=== PATIENT | female | born 1965 | race American Indian/Alaskan Native ===

== ENCOUNTER 2017-12-23 10:30 | Emergency (ER) | payer BC ==
[2017-12-23 11:11] VITALS: BP 130/66
--- NOTE | 2017-12-23 12:16 | Emergency Department Report ---
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 states pain is chronic but has been worse for the past two days. no fever, no redness, no swelling. ED Past Medical Hx - Past Medical History Previous Medical History?: No Hx Hypertension: No Hx CVA: No - Surgical History Past Surgical History?: Yes Additional Surgical History: tubiligation - Social History Smoking Status: Current Some Day Smoker Substance Use Type: Alcohol - Medications Home Medications: Home Medications Medication Instructions Recorded Confirmed Last Taken Type Azithromycin [Zithromax Z-ANJELICA] 250 mg PO DAILY #6 tablet 07/25/14 Unknown Rx Promethazine /Codeine 5 ml PO Q6H PRN #120 udc 07/25/14 Unknown Rx [Phenergan/Codeine 6.25-10 mg/5 ml] predniSONE [Deltasone] 10 mg PO TID #15 tab 07/25/14 Unknown Rx methOCARBAMOL [Robaxin TAB] 500 mg PO Q6H PRN #20 tablet 12/23/17 Unknown Rx ED Review of Systems ROS: Stated complaint: RIGHT KNEE/LEFT FOOT PAIN Other details as noted in HPI Comment: All other systems reviewed and negative Gastrointestinal: denies: abdominal pain, nausea Genitourinary: denies: urgency, dysuria Musculoskeletal: arthralgia Physical Exam - Physical Exam Vital Signs: Vital Signs 12/23/17 11:08 Temperature 98.1 F Pulse Rate 60 Respiratory 18 Rate Blood Pressure 130/66 O2 Sat by Pulse 100 Oximetry Physical Exam: GENERAL APPEARANCE: Well developed, well nourished, alert and cooperative, and appears to be in no acute distress. HEAD: normocephalic. EYES: PERRL, EOMI. Fundi normal, vision is grossly intact. EARS: External auditory canals and tympanic membranes clear, hearing grossly intact. NOSE: No nasal discharge. THROAT: Oral cavity and pharynx normal. No inflammation, swelling, exudate, or lesions. Teeth and gingiva in good general condition. NECK: Neck supple, non-tender without lymphadenopathy, masses or thyromegaly. CARDIAC: Normal S1 and S2. No S3, S4 or murmurs. Rhythm is regular. There is no peripheral edema, cyanosis or pallor. Extremities are warm and well perfused. Capillary refill is less than 2 seconds. No carotid bruits. LUNGS: Clear to auscultation and percussion without rales, rhonchi, wheezing or diminished breath sounds. ABDOMEN: Positive bowel sounds. Soft, nondistended, nontender. No guarding or rebound. No masses. MUSKULOSKELETAL: Adequately aligned spine. ROM intact spine and extremities. No joint erythema. Normal muscular development. Normal gait. does have right knee crepitus, right foot tenderness. BACK: Examination of the spine reveals normal gait and posture, no spinal deformity, symmetry of spinal muscles, without tenderness, decreased range of motion or muscular spasm. EXTREMITIES: No significant deformity or joint abnormality. No edema. Peripheral pulses intact. No varicosities. LOWER EXTREMITY: Examination of both feet reveals all toes to be normal in size and symmetry, normal range of motion, normal sensation with distal capillary filling of less than 2 seconds without tenderness, swelling, discoloration, nodules, weakness or deformity; examination of both ankles, knees, legs, and hips reveals normal range of motion, normal sensation without tenderness, swelling, discoloration, crepitus, weakness or deformity. NEUROLOGICAL: CN II-XII intact. Strength and sensation symmetric and intact throughout. Reflexes 2+ throughout. Cerebellar testing normal. SKIN: Skin normal color, texture and turgor with no lesions or eruptions. PSYCHIATRIC: The mental examination revealed the patient was oriented to person , place, and time. The patient was able to demonstrate good judgement and reason , without hallucinations, abnormal affect or abnormal behaviors during the examination. Patient is not suicidal. ED Course Vital Signs 12/23/17 11:08 Temperature 98.1 F Pulse Rate 60 Respiratory 18 Rate Blood Pressure 130/66 O2 Sat by Pulse 100 Oximetry Critical care attestation.: If time is entered above; I have spent that time in minutes in the direct care of this critically ill patient, excluding procedure time. ED Disposition Clinical Impression: Foot pain, left DJD (degenerative joint disease) of knee Qualifiers: Osteoarthritis type: unspecified Laterality: right Qualified Code(s): M17.11 - Unilateral primary osteoarthritis, right knee Disposition: - TO HOME OR SELFCARE Is pt being admited?: No Does the pt Need Aspirin: No Condition: Stable Prescriptions: methOCARBAMOL [Robaxin TAB] 500 mg PO Q6H PRN #20 tablet PRN Reason: Pain Referrals: PRIMARY CARE, [Primary Care Provider] - 3-5 Days
== END 2017-12-23 12:29 | disposition home or self-care (01) ==
LOC: ED 10:30
DX: M17.11 Unilateral primary osteoarthritis, right knee (principal); M79.672 Pain in left foot; F17.200 Nicotine dependence, unspecified, uncomplicated; Z98.51 Tubal ligation status
CPT/HCPCS: 99282

== ENCOUNTER 2018-01-13 06:12 | Emergency (ER) | payer BC ==
[2018-01-13 06:18] VITALS: BP 137/77
--- NOTE | 2018-01-13 06:44 | XRay Report ---
FINAL REPORT EXAM: XR FOOT 2V LT HISTORY: foot pain TECHNIQUE: AP and lateral views of the left foot were submitted. FINDINGS: There is no evidence of fracture or dislocation. There are small spurs along the posterior and plantar margin of the calcaneus. The soft tissues are unremarkable. IMPRESSION: Calcaneal spurs. Otherwise unremarkable exam.
--- NOTE | 2018-01-13 09:08 | Emergency Department Report ---
ED Extremity Problem HPI - General Chief complaint: Extremity Injury, Lower Stated complaint: FOOT PAIN Time Seen by Provider: 01/13/18 08:46 Source: patient Mode of arrival: Ambulatory Limitations: No Limitations - History of Present Illness Initial comments: Patient is a 52-year-old female who is complaining of left foot pain. Patient states she stepped out of her work van yesterday and didn't think she may twisted her foot. Patient is having lateral pain to the left foot as well as pain at the arch. Patient states hurts when she's placing her foot on the ground and walking. Patient states at the worst is 8 out of 10 in severity. Sometimes she is having some shooting pains in this area. Patient denies any other injury issue at this time. - Related Data Previous Rx's Medication Instructions Recorded Last Taken Type Azithromycin [Zithromax Z-ANJELICA] 250 mg PO DAILY #6 tablet 07/25/14 Unknown Rx Promethazine /Codeine 5 ml PO Q6H PRN #120 udc 07/25/14 Unknown Rx [Phenergan/Codeine 6.25-10 mg/5 ml] predniSONE [Deltasone] 10 mg PO TID #15 tab 07/25/14 Unknown Rx methOCARBAMOL [Robaxin TAB] 500 mg PO Q6H PRN #20 tablet 12/23/17 Unknown Rx Ibuprofen [Motrin] 600 mg PO Q8H PRN #20 tablet 01/13/18 Unknown Rx traMADol [Ultram] 50 mg PO Q6HR PRN #12 tablet 01/13/18 Unknown Rx Allergies Allergy/AdvReac Type Severity Reaction Status Date / Time No Known Allergies Allergy Verified 01/13/18 06:20 ED Review of Systems ROS: Stated complaint: FOOT PAIN Other details as noted in HPI Comment: All other systems reviewed and negative ED Past Medical Hx - Past Medical History Hx Hypertension: No Hx CVA: No - Surgical History Additional Surgical History: tubiligation - Social History Smoking Status: Current Some Day Smoker Substance Use Type: None - Medications Home Medications: Home Medications Medication Instructions Recorded Confirmed Last Taken Type Azithromycin [Zithromax Z-ANJELICA] 250 mg PO DAILY #6 tablet 07/25/14 Unknown Rx Promethazine /Codeine 5 ml PO Q6H PRN #120 udc 07/25/14 Unknown Rx [Phenergan/Codeine 6.25-10 mg/5 ml] predniSONE [Deltasone] 10 mg PO TID #15 tab 07/25/14 Unknown Rx methOCARBAMOL [Robaxin TAB] 500 mg PO Q6H PRN #20 tablet 12/23/17 Unknown Rx Ibuprofen [Motrin] 600 mg PO Q8H PRN #20 tablet 01/13/18 Unknown Rx traMADol [Ultram] 50 mg PO Q6HR PRN #12 tablet 01/13/18 Unknown Rx ED Physical Exam - General Limitations: No Limitations General appearance: alert, in no apparent distress - Head Head exam: Present: atraumatic, normocephalic - Eye Eye exam: Present: normal appearance - ENT ENT exam: Present: mucous membranes moist - Neck Neck exam: Present: normal inspection - Respiratory Respiratory exam: Present: normal lung sounds bilaterally. Absent: respiratory distress, rales, rhonchi - Cardiovascular Cardiovascular Exam: Present: regular rate, normal rhythm. Absent: systolic murmur, diastolic murmur, rubs, gallop - GI/Abdominal GI/Abdominal exam: Present: soft, normal bowel sounds. Absent: distended, tenderness, guarding - Extremities Exam Extremities exam: Present: normal inspection, other (patient has some very mild tenderness to the lateral left foot. There is no erythema or swelling in this area.) - Back Exam Back exam: Present: normal inspection - Neurological Exam Neurological exam: Present: alert, oriented X3 - Psychiatric Psychiatric exam: Present: normal affect, normal mood - Skin Skin exam: Present: warm, dry, intact, normal color. Absent: rash ED Course Vital Signs 01/13/18 01/13/18 06:12 06:14 Temperature 98.8 F 98.8 F Pulse Rate 63 74 Respiratory 18 Rate Blood Pressure 137/77 137/77 O2 Sat by Pulse 98 98 Oximetry ED Medical Decision Making - Radiology Data Patient: JUVE DAVIS MR#: [id number] : 1965 Acct:[id number] Age/Sex: 52 / F ADM Date: 01/13/18 Loc: ED Attending Dr: Ordering Physician: BRIAN BRAR MD Date of Service: 01/13/18 Procedure(s): XR foot 2V LT Accession Number(s): [id number] cc: ED MD ZONIA Fluoro Time In Minutes: FINAL REPORT EXAM: XR FOOT 2V LT HISTORY: foot pain TECHNIQUE: AP and lateral views of the left foot were submitted. FINDINGS: There is no evidence of fracture or dislocation. There are small spurs along the posterior and plantar margin of the calcaneus. The soft tissues are unremarkable. IMPRESSION: Calcaneal spurs. Otherwise unremarkable exam. - Medical Decision Making Patient will be referred to podiatry O be discharged home. Critical care attestation.: If time is entered above; I have spent that time in minutes in the direct care of this critically ill patient, excluding procedure time. ED Disposition Clinical Impression: Plantar fasciitis of left foot Calcaneal spur Qualifiers: Laterality: left Qualified Code(s): M77.32 - Calcaneal spur, left foot Disposition: TO HOME OR SELFCARE Is pt being admited?: No Does the pt Need Aspirin: No Condition: Stable Instructions: Plantar Fasciitis (ED) Referrals: MARY BRAND DPM [Staff Physician] - 3-5 Days Time of Disposition: 09:08
== END 2018-01-13 09:14 | disposition home or self-care (01) ==
LOC: ED 06:12
DX: M72.2 Plantar fascial fibromatosis (principal); M77.32 Calcaneal spur, left foot; F17.200 Nicotine dependence, unspecified, uncomplicated; Z98.51 Tubal ligation status
CPT/HCPCS: 99283

== ENCOUNTER 2019-04-26 11:07 | Emergency (ER) | payer BC ==
[2019-04-26 11:25] VITALS: BP 152/94
--- NOTE | 2019-04-26 11:48 | Emergency Department Report ---
ED ENT HPI - General Chief complaint: Dental/Oral Stated complaint: LFT SIDE TOOTHACHE Time Seen by Provider: 04/26/19 11:44 Source: patient Mode of arrival: Ambulatory Limitations: No Limitations - History of Present Illness Initial comments: This is a 53-year-old female nontoxic, well nourished in appearance, no acute signs of distress presents to the ED with c/o of left upper toothache 3 weeks. Patient denies following up with a dentist. Patient describes toothache as aching level of 8 out of 10. Patient denies any facial swelling. Patient de nies any numbness, tingling, fever, chills, headache, stiff neck, abdominal pain, chest pain, shortness of breath. Patient denies any drug allergies or significant past medical history. MD complaint: tooth pain -: week(s) (3) Location: tooth # 1 - pain Severity: mild Severity scale (0 -10): 8 Quality: aching Consistency: constant Improves with: none Worsens with: none Context- Dental: history of dental caries, poor dental care Associated Symptoms: gum swelling, toothache. denies: fever, cough, pain with swallowing, sore throat, tinnitus, hearing loss, discharge from ear, rhinorrhea - Related Data Previous Rx's Medication Instructions Recorded Last Taken Type Azithromycin [Zithromax Z-ANJELICA] 250 mg PO DAILY #6 tablet 07/25/14 Unknown Rx Promethazine /Codeine 5 ml PO Q6H PRN #120 udc 07/25/14 Unknown Rx [Phenergan/Codeine 6.25-10 mg/5 ml] predniSONE [Deltasone] 10 mg PO TID #15 tab 07/25/14 Unknown Rx methOCARBAMOL [Robaxin TAB] 500 mg PO Q6H PRN #20 tablet 12/23/17 Unknown Rx Ibuprofen [Motrin] 600 mg PO Q8H PRN #20 tablet 01/13/18 Unknown Rx traMADol [Ultram] 50 mg PO Q6HR PRN #12 tablet 01/13/18 Unknown Rx Acetaminophen/Codeine [Tylenol 1 tab PO Q6H PRN #12 tab 09/02/19 Unknown Rx /Codeine # 3 tab] Amoxicillin [Amoxicillin TAB] 875 mg PO BID #20 tablet 04/26/19 Unknown Rx Nystas/Diphen/Xyl Visc/Mylanta 30 ml MM Q6H PRN 5 Days ml 04/26/19 Unknown Rx [Magic Mouthwash] Allergies Allergy/AdvReac Type Severity Reaction Status Date / Time No Known Allergies Allergy Verified 01/13/18 06:20 ED Dental HPI - General Chief complaint: Dental/Oral Stated complaint: LFT SIDE TOOTHACHE Time Seen by Provider: 04/26/19 11:44 Source: patient Mode of arrival: Ambulatory Limitations: No Limitations - Related Data Previous Rx's Medication Instructions Recorded Last Taken Type Azithromycin [Zithromax Z-ANJELICA] 250 mg PO DAILY #6 tablet 07/25/14 Unknown Rx Promethazine /Codeine 5 ml PO Q6H PRN #120 udc 07/25/14 Unknown Rx [Phenergan/Codeine 6.25-10 mg/5 ml] predniSONE [Deltasone] 10 mg PO TID #15 tab 07/25/14 Unknown Rx methOCARBAMOL [Robaxin TAB] 500 mg PO Q6H PRN #20 tablet 12/23/17 Unknown Rx Ibuprofen [Motrin] 600 mg PO Q8H PRN #20 tablet 01/13/18 Unknown Rx traMADol [Ultram] 50 mg PO Q6HR PRN #12 tablet 01/13/18 Unknown Rx Acetaminophen/Codeine [Tylenol 1 tab PO Q6H PRN #12 tab 04/26/19 Unknown Rx /Codeine # 3 tab] Amoxicillin [Amoxicillin TAB] 875 mg PO BID #20 tablet 04/26/19 Unknown Rx Nystas/Diphen/Xyl Visc/Mylanta 30 ml MM Q6H PRN 5 Days ml 04/26/19 Unknown Rx [Magic Mouthwash] Allergies Allergy/AdvReac Type Severity Reaction Status Date / Time No Known Allergies Allergy Verified 01/13/18 06:20 ED Review of Systems ROS: Stated complaint: LFT SIDE TOOTHACHE Other details as noted in HPI Constitutional: denies: chills, fever Eyes: denies: eye pain, eye discharge, vision change ENT: dental pain. denies: ear pain, throat pain Respiratory: denies: cough, shortness of breath, wheezing Cardiovascular: denies: chest pain, palpitations Endocrine: no symptoms reported Gastrointestinal: denies: abdominal pain, nausea, diarrhea Genitourinary: denies: urgency, dysuria, discharge Musculoskeletal: denies: back pain, joint swelling, arthralgia Skin: denies: rash, lesions Neurological: denies: headache, weakness, paresthesias Psychiatric: denies: anxiety, depression Hematological/Lymphatic: denies: easy bleeding, easy bruising ED Past Medical Hx - Past Medical History Previous Medical History?: Yes Hx Hypertension: No Hx CVA: No - Surgical History Past Surgical History?: Yes Additional Surgical History: tubiligation - Social History Smoking Status: Current Some Day Smoker Substance Use Type: None - Medications Home Medications: Home Medications Medication Instructions Recorded Confirmed Last Taken Type Azithromycin [Zithromax Z-ANJELICA] 250 mg PO DAILY #6 tablet 07/25/14 Unknown Rx Promethazine /Codeine 5 ml PO Q6H PRN #120 udc 07/25/14 Unknown Rx [Phenergan/Codeine 6.25-10 mg/5 ml] predniSONE [Deltasone] 10 mg PO TID #15 tab 07/25/14 Unknown Rx methOCARBAMOL [Robaxin TAB] 500 mg PO Q6H PRN #20 tablet 12/23/17 Unknown Rx Ibuprofen [Motrin] 600 mg PO Q8H PRN #20 tablet 01/13/18 Unknown Rx traMADol [Ultram] 50 mg PO Q6HR PRN #12 tablet 01/13/18 Unknown Rx Acetaminophen/Codeine [Tylenol 1 tab PO Q6H PRN #12 tab 04/26/19 Unknown Rx /Codeine # 3 tab] Amoxicillin [Amoxicillin TAB] 875 mg PO BID #20 tablet 04/26/19 Unknown Rx Nystas/Diphen/Xyl Visc/Mylanta 30 ml MM Q6H PRN 5 Days ml 04/26/19 Unknown Rx [Magic Mouthwash] ED Physical Exam - General Limitations: No Limitations General appearance: alert, in no apparent distress - Head Head exam: Present: atraumatic, normocephalic - Expanded ENT Exam Expanded Ear exam: Present: normal external inspection Mouth exam: Present: normal external inspection. Absent: drooling, trismus, muffled voice Teeth exam: Present: dental caries, fractured tooth #, dental tenderness #, gingival enlargement, other (facial swelling) Throat exam: Positive: normal inspection, other (uvula midline). Negative: tonsillar erythema, tonsillomegaly, tonsillar exudate, R peritonsillar mass, L peritonsillar mass - Neck Neck exam: Present: normal inspection, full ROM. Absent: tenderness, mening ismus, lymphadenopathy - Extremities Exam Extremities exam: Present: normal inspection, full ROM - Back Exam Back exam: Present: normal inspection, full ROM - Neurological Exam Neurological exam: Present: alert, oriented X3, normal gait - Psychiatric Psychiatric exam: Present: normal affect, normal mood - Skin Skin exam: Present: warm, dry, intact, normal color. Absent: rash ED Course Vital Signs 04/26/19 11:22 Temperature 98.1 F Pulse Rate 63 Respiratory 18 Rate Blood Pressure 152/94 O2 Sat by Pulse 98 Oximetry - Reevaluation(s) Reevaluation #1: 04/26/19 11:48 Patient is speaking in full sentences with no signs of distress noted. Critical care attestation.: If time is entered above; I have spent that time in minutes in the direct care of this critically ill patient, excluding procedure time. ED Disposition Clinical Impression: Dental caries, Gingivitis Disposition: DC-01 TO HOME OR SELFCARE Is pt being admited?: No Does the pt Need Aspirin: No Condition: Stable Instructions: Acetaminophen/Codeine (By mouth), Dental Caries (ED), Gingivitis (ED) Additional Instructions: Follow-up with a dentist doctor in 3-5 days or if symptoms worsen and continue return to emergency room as soon as possible. Do not operate any machinery while taking Tylenol with codeine as this may cause drowsiness. Prescriptions: Amoxicillin [Amoxicillin TAB] 875 mg PO BID #20 tablet Nystas/Diphen/Xyl Visc/Mylanta [Magic Mouthwash] 30 ml MM Q6H PRN 5 Days ml PRN Reason: Sore Throat Acetaminophen/Codeine [Tylenol /Codeine # 3 tab] 1 tab PO Q6H PRN #12 tab PRN Reason: pain Referrals: PRIMARY CARE, [Primary Care Provider] - 3-5 Days JACKI EATON MD [Staff Physician] - 3-5 Days [facility] [Outside] - 3-5 Days [facility] [Outside] - 3-5 Days Forms: Work/School Release Form(ED)
== END 2019-04-26 12:15 | disposition home or self-care (01) ==
LOC: ED 11:07
DX: K02.9 Dental caries, unspecified (principal); K05.10 Chronic gingivitis, plaque induced; F17.200 Nicotine dependence, unspecified, uncomplicated; Z98.51 Tubal ligation status; Z79.899 Other long term (current) drug therapy

== ENCOUNTER 2020-12-13 00:20 | Emergency (ER) | payer BC ==
[2020-12-13 01:15] VITALS: BP 151/83
[2020-12-13] MEDS ORDERED: ACETAMINOPHEN 500 MG TAB PO ONE (01:44)
[2020-12-13] MEDS ORDERED: ONDANSETRON 4 MG ODT TAB PO ONE (01:44)
[2020-12-13] MEDS ORDERED: IBUPROFEN 600 MG TAB PO ONE (01:45)
[2020-12-13 02:18] LABS: Basophils # (Auto) 0.1 K/mm3 (0.0-0.1); Basophils % (Auto) 1.1 % (0.0-1.8); Eosinophils # (Auto) 0.1 K/mm3 (0.0-0.4); Eosinophils % (Auto) 1.9 % (0.0-4.3); Hematocrit 35.3 % (30.3-42.9); Hemoglobin 11.4 gm/dl (10.1-14.3); Lymphocytes # (Auto) 2.6 K/mm3 (1.2-5.4); Lymphocytes % (Auto) 40.8 % (13.4-35.0); Mean Corpuscular HGB Conc 32 % (30-34); Mean Corpuscular Volume 80 fl (79-97); Monocytes # (Auto) 0.5 K/mm3 (0.0-0.8); Monocytes % (Auto) 8.6 % (0.0-7.3); Platelet Count 299 K/mm3 (140-440); Red Blood Count 4.39 M/mm3 (3.65-5.03)
[2020-12-13 02:36] LABS: Albumin 4.1 g/dL (3.9-5); Calcium 9.6 mg/dL (8.4-10.2)
--- NOTE | 2020-12-13 03:08 | Cat Scan Report ---
CT ABDOMEN AND PELVIS WITHOUT CONTRAST HISTORY: Pt complains of RIGHT sided flank pain, otherwise asymptomatic.. COMPARISON: None. TECHNIQUE: CT images of the abdomen and pelvis were obtained without administration of intravenous co ntrast. All CT scans at this location are performed using CT dose reduction for ALARA by means of au tomated exposure control. FINDINGS: Lungs/bones: Lung bases are clear. There are degenerative changes in the spine and pelvis with no ac nikolski osseous abnormality identified. Abdomen/pelvis: There is cholelithiasis with no gallbladder wall thickening or pericholecystic fluid . The liver is enlarged with no focal mass identified. The spleen, pancreas, adrenals, kidneys, and p roximal GI tract appear unremarkable. Urinary bladder is unremarkable. There is uterine fibroid disease with some calcified fibroids. No pe lvic free fluid or acute colonic abnormality. The appendix and terminal ileum are normal. IMPRESSION: 1. Cholelithiasis without evidence of cholecystitis. 2. Uterine fibroid disease. 3. Otherwise nothing acute. Appendix is normal. Signer Name: Willie Dietz MD Signed: 12/13/2020 3:04 AM Workstation Name: [id number]
[2020-12-13 03:16] LABS: Bilirubin,Urine NEG (Negative); Blood,Urine NEG (Negative); Color,Urine Yellow (Yellow); Mucus,Urine FEW /HPF; Protein,Urine <15 mg/dL mg/dL (Negative); Urobilinogen,Urine < 2.0 mg/dL (<2.0)
--- NOTE | 2020-12-13 03:32 | Emergency Department Report ---
ED Abdominal Pain HPI - General Chief Complaint: Abdominal Pain Stated Complaint: RT SIDE/BACK PAIN Source: patient Mode of arrival: Ambulatory Limitations: No Limitations - History of Present Illness Initial Comments: Patient is a 55-year-old -[place] female with no past medical history presents to the ED with complaint of acute onset persistent severe right flank pain that radiates to the right upper quadrant area with nausea and urinary frequency and urgency for the last 12 hours. Patient states that the pain is worse with any movement or palpation. Patient denies heavy lifting, fall, traumatic injury, vomiting, chest pain, shortness of breath, headache, dizz iness, syncope, diarrhea, fever, chills, cough, numbness and tingling or weakness of lower extremities bilaterally. MD Complaint: abdominal pain (Right flank pain radiating to the right upper quadrant), flank pain (Right flank pain radiating to right upper quadrant), other (Nausea and urinary frequency) -: Sudden, hour(s) (12) Location: RUQ, R flank Radiation: RUQ, R flank Migration to: no migration Severity scale (0 -10): 6 Quality: aching, sharp Consistency: constant Improves With: nothing Worsens With: movement Associated Symptoms: denies other symptoms, nausea, anorexia. denies: vomiting, diarrhea, fever, chills, dysuria, hematemesis, hematochezia, melena, syncope - Related Data Previous Rx's Medication Instructions Recorded Last Taken Type Azithromycin [Zithromax Z-ANJELICA] 250 mg PO DAILY #6 tablet 07/25/14 Unknown Rx Promethazine /Codeine 5 ml PO Q6H PRN #120 udc 07/25/14 Unknown Rx [Phenergan/Codeine 6.25-10 mg/5 ml] predniSONE 10 mg PO TID #15 tab 07/25/14 Unknown Rx methOCARBAMOL [Robaxin TAB] 500 mg PO Q6H PRN #20 tablet 12/23/17 Unknown Rx Ibuprofen [Motrin] 600 mg PO Q8H PRN #20 tablet 01/13/18 Unknown Rx traMADoL [Ultram] 50 mg PO Q6HR PRN #12 tablet 01/13/18 Unknown Rx Acetaminophen/Codeine [Tylenol 1 tab PO Q6H PRN #12 tab 04/26/19 Unknown Rx /Codeine # 3 tab] Amoxicillin [Amoxicillin TAB] 875 mg PO BID #20 tablet 04/26/19 Unknown Rx Nystas/Diphen/Xyl Visc/Mylanta 30 ml MM Q6H PRN 5 Days ml 04/26/19 Unknown Rx [Magic Mouthwash] Famotidine [Pepcid] 20 mg PO BID #60 tablet 12/13/20 Unknown Rx Ibuprofen [Motrin] 800 mg PO Q8HR PRN #30 tablet 12/13/20 Unknown Rx Ondansetron [Zofran Odt] 4 mg PO Q6HR PRN #15 tab.rapdis 12/13/20 Unknown Rx Allergies Allergy/AdvReac Type Severity Reaction Status Date / Time No Known Allergies Allergy Verified 01/13/18 06:20 ED Review of Systems ROS: Stated complaint: RT SIDE/BACK PAIN Other details as noted in HPI Constitutional: denies: chills, fever Eyes: denies: eye pain, eye discharge, vision change ENT: denies: ear pain, throat pain Respiratory: denies: cough, shortness of breath, wheezing Cardiovascular: denies: chest pain, palpitations Endocrine: no symptoms reported Gastrointestinal: abdominal pain (Right upper quadrant pain, right flank pain), nausea. denies: diarrhea Genitourinary: denies: urgency, dysuria, discharge Musculoskeletal: denies: back pain, joint swelling, arthralgia Skin: denies: rash, lesions Neurological: denies: headache, weakness, paresthesias Psychiatric: denies: anxiety, depression Hematological/Lymphatic: denies: easy bleeding, easy bruising ED Past Medical Hx - Past Medical History Previous Medical History?: No Hx Hypertension: No Hx CVA: No - Surgical History Past Surgical History?: Yes Additional Surgical History: tubiligation - Social History Smoking Status: Current Some Day Smoker Substance Use Type: None - Medications Home Medications: Home Medications Medication Instructions Recorded Confirmed Last Taken Type Azithromycin [Zithromax Z-ANJELICA] 250 mg PO DAILY #6 tablet 07/25/14 Unknown Rx Promethazine /Codeine 5 ml PO Q6H PRN #120 udc 07/25/14 Unknown Rx [Phenergan/Codeine 6.25-10 mg/5 ml] predniSONE 10 mg PO TID #15 tab 07/25/14 Unknown Rx methOCARBAMOL [Robaxin TAB] 500 mg PO Q6H PRN #20 tablet 05/01/18 Unknown Rx Ibuprofen [Motrin] 600 mg PO Q8H PRN #20 tablet 01/13/18 Unknown Rx traMADoL [Ultram] 50 mg PO Q6HR PRN #12 tablet 01/13/18 Unknown Rx Acetaminophen/Codeine [Tylenol 1 tab PO Q6H PRN #12 tab 04/26/19 Unknown Rx /Codeine # 3 tab] Amoxicillin [Amoxicillin TAB] 875 mg PO BID #20 tablet 04/26/19 Unknown Rx Nystas/Diphen/Xyl Visc/Mylanta 30 ml MM Q6H PRN 5 Days ml 04/26/19 Unknown Rx [Magic Mouthwash] Famotidine [Pepcid] 20 mg PO BID #60 tablet 12/13/20 Unknown Rx Ibuprofen [Motrin] 800 mg PO Q8HR PRN #30 tablet 12/13/20 Unknown Rx Ondansetron [Zofran Odt] 4 mg PO Q6HR PRN #15 tab.rapdis 12/13/20 Unknown Rx ED Physical Exam - General Limitations: No Limitations General appearance: alert, in no apparent distress - Head Head exam: Present: atraumatic, normocephalic, normal inspection - Eye Eye exam: Present: normal appearance, PERRL, EOMI Pupils: Present: normal accommodation - ENT ENT exam: Present: normal exam, normal orophraynx, mucous membranes moist, TM's normal bilaterally, normal external ear exam - Neck Neck exam: Present: normal inspection, full ROM - Respiratory Respiratory exam: Present: normal lung sounds bilaterally. Absent: respiratory distress, wheezes, rales, chest wall tenderness, accessory muscle use - Cardiovascular Cardiovascular Exam: Present: regular rate, normal rhythm, normal heart sounds. Absent: systolic murmur, diastolic murmur, rubs, gallop - GI/Abdominal GI/Abdominal exam: Present: soft, tenderness (Palpable right flank and right upper quadrant tenderness; negative Staples sign), normal bowel sounds. Absent: guarding, rebound, hyperactive bowel sounds, hypoactive bowel sounds - Extremities Exam Extremities exam: Present: normal inspection, full ROM, normal capillary refill - Back Exam Back exam: Present: normal inspection, full ROM, tenderness (Palpable right CVA tenderness; palpable right flank and right lateral lumbosacral paraspinal musculoskeletal tenderness), CVA tenderness (R), muscle spasm, paraspinal tenderness. Absent: CVA tenderness (L), vertebral tenderness - Neurological Exam Neurological exam: Present: alert, oriented X3, CN II-XII intact, normal gait, reflexes normal - Psychiatric Psychiatric exam: Present: normal affect, normal mood - Skin Skin exam: Present: warm, dry, intact, normal color. Absent: rash ED Course Vital Signs 12/13/20 01:12 Temperature 97.9 F Pulse Rate 69 Respiratory 18 Rate Blood Pressure 151/83 O2 Sat by Pulse 99 Oximetry ED Medical Decision Making - Lab Data Result diagrams: 12/13/20 01:47 12/13/20 01:47 - Radiology Data Radiology results: report reviewed, image reviewed [facility] [address] [place] [address] Cat Scan Report Signed Patient: JUVE DAVIS MR#: [id number] : 1965 Acct:[id number] Age/Sex: 55 / F ADM Date: 12/13/20 Loc: ED Attending Dr: Ordering Physician: TU URBANO Date of Service: 12/13/20 Procedure(s): CT abdomen pelvis wo con Accession Number(s): [id number] cc: TU URBANO CT ABDOMEN AND PELVIS WITHOUT CONTRAST HISTORY: Pt complains of RIGHT sided flank pain, otherwise asymptomatic.. COMPARISON: None. TECHNIQUE: CT images of the abdomen and pelvis were obtained without administration of intravenous contrast. All CT scans at this location are performed using CT dose reduction for ALARA by means of automated exposure control. FINDINGS: Lungs/bones: Lung bases are clear. There are degenerative changes in the spine and pelvis with no acute osseous abnormality identified. Abdomen/pelvis: There is cholelithiasis with no gallbladder wall thickening or pericholecystic fluid. The liver is enlarged with no focal mass identified. The spleen, pancreas, adrenals, kidneys, and proximal GI tract appear unremarkable. Urinary bladder is unremarkable. There is uterine fibroid disease with some norma cified fibroids. No pelvic free fluid or acute colonic abnormality. The appendix and terminal ileum are normal. IMPRESSION: 1. Cholelithiasis without evidence of cholecystitis. 2. Uterine fibroid disease. 3. Otherwise nothing acute. Appendix is normal. Signer Name: Willie Dietz MD Signed: 12/13/2020 3:04 AM Workstation Name: [id number] Transcribed By: SHERLEY Dictated By: Willie Dietz MD Electronically Authenticated By: Willie Dietz MD Signed Date/Time: 12/13/20303 DD/ 1 TD/TT: Print Cancel - Medical Decision Making This is a 55-year-old -[place] female with no past medical history pr esents to the ED with complaint of acute onset persistent severe right flank pain that radiates to the right upper quadrant area with nausea and urinary frequency and urgency for the last 12 hours. Patient states that the pain is worse with any movement or palpation. In the ED, patient is alert and oriented x3 and is not in any distress. Lab test results were reviewed and are all nonactionable. Abdomen pelvis CT scan without contrast showed a normal appendix, and also showed uterine fibroid disease and cholelithiasis without evidence of cholecystitis. Patient was treated for pain in the ED and also given antiemetics. On reevaluation, patient's pain is well controlled medications. Patient will discharge home on pain medications and given referral to the general surgeon on-call Dr. Man for follow-up regarding cholelithiasis. Patient was advised to contact Dr. Man's office first thing in the morning today December 13, 2020 to schedule a follow-up appointment. Patient is advised return to the ED immediately if symptoms get worse. - Differential Diagnosis Kidney stones; Cholelithiasis; UTI; GERD; Appendicitis; fibroroids Critical care attestation.: If time is entered above; I have spent that time in minutes in the direct care of this critically ill patient, excluding procedure time. ED Disposition Clinical Impression: Acute abdominal pain in right flank, Acute abdominal pain in right upper quadrant, Cholelithiasis without cholecystitis Uterine fibroid Qualifiers: Uterine leiomyoma location: unspecified location Qualified Code(s): D25.9 - Leiomyoma of uterus, unspecified Disposition: DC-01 TO HOME OR SELFCARE Is pt being admited?: No Does the pt Need Aspirin: No Condition: Stable Instructions: Abdominal Pain (ED), Cholelithiasis, [id number], Uterine Fibroids, [id number], Abdominal Pain, Adult, [id number], Flank Pain, Adult, [id number]-[id number] Additional Instructions: All lab test results were reviewed and are all nonactionable. Abdomen pelvis CT scan without contrast showed cholelithiasis without evidence of cholecystitis. It also showed a normal appendix and uterine fibroids. Therefore take medications with food, drink plenty of fluids and follow-up with the general surgeon on-call Dr. Man for further evaluation. Contact Dr. Man's office first thing today in the morning December 13, 2020 to schedule a follow-up appoint ment. Return to the ED immediately if symptoms get worse. Prescriptions: Ibuprofen [Motrin] 800 mg PO Q8HR PRN #30 tablet PRN Reason: Pain , Severe (7-10) Famotidine [Pepcid] 20 mg PO BID #60 tablet Ondansetron [Zofran Odt] 4 mg PO Q6HR PRN #15 tab.rapdis PRN Reason: Nausea Referrals: KALIE MAN DO [Staff Physician] - [facility] Time of Disposition: 03:36 Print Language: GREENLANDIC
== END 2020-12-13 03:46 | disposition home or self-care (01) ==
LOC: ED 00:20
DX: D25.9 Leiomyoma of uterus, unspecified (principal); K80.20 Calculus of gallbladder without cholecystitis without obstruction; R10.11 Right upper quadrant pain; F17.200 Nicotine dependence, unspecified, uncomplicated; Z79.899 Other long term (current) drug therapy; Z98.51 Tubal ligation status
CPT/HCPCS: 36415; 74176; 80053; 81001; 83690; 85025; 87086; Q0162

== ENCOUNTER 2022-01-09 09:31 | Emergency (ER) | payer BC ==
[2022-01-09] MEDS ORDERED: CYCLOBENZAPRINE 10 MG TAB PO ONE (12:46)
[2022-01-09] MEDS ORDERED: predniSONE 20 MG TAB PO ONE (12:46)
[2022-01-09] MEDS ORDERED: KETOROLAC 10 MG TAB PO ONE (12:46)
--- NOTE | 2022-01-09 13:07 | Emergency Department Report ---
ED Extremity Problem HPI - General Chief complaint: Extremity Problem,Nontraumatic Stated complaint: PAIN BOTH KNEES/NUMBNESS Time Seen by Provider: 01/09/22 12:41 Source: patient Mode of arrival: Ambulatory Limitations: No Limitations - History of Present Illness Initial comments: 56-year-old black female with no past medical history presents to the emergency department for evaluation of right knee pain. She states that her right knee pain started on Friday and she denies any trauma or injury. She states that several years ago she fell and hit her knee and had some pain back then but that pain had resolved. She states that her right knee pain now is rated 9 out of 10, intermittent, and worse with certain positions. She denies fever or sw elling to her right knee. MD Complaint: extremity pain -: Gradual, week(s) (1) Location: right, knee History of Same: No -: No myalgia, No arthralgia, No associated dyspnea, No associated chest pain Severity scale (0 -10): 9 Quality: aching Consistency: intermittent Worsens with: other (Certain positions) Associated Symptoms: denies: chest pain, shortness of breath, fever, myalgias, arthralgias, rash - Related Data Previous Rx's Medication Instructions Recorded Last Taken Type Azithromycin [Zithromax Z-ANJELICA] 250 mg PO DAILY #6 tablet 07/25/14 Unknown Rx Promethazine /Codeine 5 ml PO Q6H PRN #120 udc 07/25/14 Unknown Rx [Phenergan/Codeine 6.25-10 mg/5 ml] predniSONE 10 mg PO TID #15 tab 07/25/14 Unknown Rx methOCARBAMOL [Robaxin TAB] 500 mg PO Q6H PRN #20 tablet 12/23/17 Unknown Rx Ibuprofen [Motrin] 600 mg PO Q8H PRN #20 tablet 01/13/18 Unknown Rx traMADoL [Ultram] 50 mg PO Q6HR PRN #12 tablet 01/13/18 Unknown Rx Acetaminophen/Codeine [Tylenol 1 tab PO Q6H PRN #12 tab 04/26/19 Unknown Rx /Codeine # 3 tab] Amoxicillin [Amoxicillin TAB] 875 mg PO BID #20 tablet 04/26/19 Unknown Rx Nystas/Diphen/Xyl Visc/Mylanta 30 ml MM Q6H PRN 5 Days ml 04/26/19 Unknown Rx [Magic Mouthwash] Famotidine [Pepcid] 20 mg PO BID #60 tablet 12/13/20 Unknown Rx Ibuprofen [Motrin] 800 mg PO Q8HR PRN #30 tablet 12/13/20 Unknown Rx Ondansetron [Zofran Odt] 4 mg PO Q6HR PRN #15 tab.rapdis 12/13/20 Unknown Rx Cyclobenzaprine [Flexeril] 10 mg PO TID PRN #30 tab 01/09/22 Unknown Rx Naproxen [Naprosyn] 500 mg PO BID #14 tab 01/09/22 Unknown Rx Allergies Allergy/AdvReac Type Severity Reaction Status Date / Time No Known Allergies Allergy Verified 01/13/18 06:20 ED Review of Systems ROS: Stated complaint: PAIN BOTH KNEES/NUMBNESS Other details as noted in HPI Comment: All other systems reviewed and negative Constitutional: denies: chills, fever Eyes: denies: vision change ENT: denies: congestion Respiratory: denies: cough, shortness of breath, SOB with exertion, SOB at rest, stridor, wheezing Cardiovascular: denies: chest pain, palpitations, dyspnea on exertion, orthopnea, edema, syncope, paroxysmal nocturnal dyspnea Gastrointestinal: denies: abdominal pain, nausea, vomiting, diarrhea, hematemesis, melena, hematochezia Musculoskeletal: denies: back pain Neurological: denies: headache ED Past Medical Hx - Past Medical History Hx Hypertension: No Hx CVA: No - Surgical History Additional Surgical History: tubiligation - Social History Smoking Status: Current Some Day Smoker Substance Use Type: None - Medications Home Medications: Home Medications Medication Instructions Recorded Confirmed Last Taken Type Azithromycin [Zithromax Z-ANJELICA] 250 mg PO DAILY #6 tablet 07/25/14 Unknown Rx Promethazine /Codeine 5 ml PO Q6H PRN #120 udc 07/25/14 Unknown Rx [Phenergan/Codeine 6.25-10 mg/5 ml] predniSONE 10 mg PO TID #15 tab 07/25/14 Unknown Rx methOCARBAMOL [Robaxin TAB] 500 mg PO Q6H PRN #20 tablet 12/23/17 Unknown Rx Ibuprofen [Motrin] 600 mg PO Q8H PRN #20 tablet 01/13/18 Unknown Rx traMADoL [Ultram] 50 mg PO Q6HR PRN #12 tablet 01/13/18 Unknown Rx Acetaminophen/Codeine [Tylenol 1 tab PO Q6H PRN #12 tab 04/26/19 Unknown Rx /Codeine # 3 tab] Amoxicillin [Amoxicillin TAB] 875 mg PO BID #20 tablet 04/26/19 Unknown Rx Nystas/Diphen/Xyl Visc/Mylanta 30 ml MM Q6H PRN 5 Days ml 04/26/19 Unknown Rx [Magic Mouthwash] Famotidine [Pepcid] 20 mg PO BID #60 tablet 12/13/20 Unknown Rx Ibuprofen [Motrin] 800 mg PO Q8HR PRN #30 tablet 12/13/20 Unknown Rx Ondansetron [Zofran Odt] 4 mg PO Q6HR PRN #15 tab.rapdis 12/13/20 Unknown Rx Cyclobenzaprine [Flexeril] 10 mg PO TID PRN #30 tab 01/09/22 Unknown Rx Naproxen [Naprosyn] 500 mg PO BID #14 tab 01/09/22 Unknown Rx ED Physical Exam - General Limitations: No Limitations General appearance: alert, in no apparent distress - Head Head exam: Present: atraumatic, normocephalic - Eye Eye exam: Present: normal appearance. Absent: scleral icterus, conjunctival injection - Neck Neck exam: Present: normal inspection - Respiratory Respiratory exam: Absent: respiratory distress - Cardiovascular Cardiovascular Exam: Present: bradycardia - GI/Abdominal GI/Abdominal exam: Absent: distended - Extremities Exam Extremities exam: Present: normal inspection - Expanded Lower Extremity Exam Right Hip exam: Present: normal inspection Upper Leg exam: Present: normal inspection Knee exam: Present: normal inspection, full ROM, tenderness. Absent: swelling, abrasion, laceration, ecchymosis, crepidus, dislocation, erythema, effusion Lower Leg exam: Present: normal inspection Ankle exam: Present: normal inspection Foot/Toe exam: Present: normal inspection Neuro vascular tendon exam: Present: no vascular compromise. Absent: pulse defi cit, abnormal cap refill, motor deficit, sensory deficit, extremity cold to touch, pallor Gait: Positive: observed and normal - Back Exam Back exam: Present: normal inspection. Absent: CVA tenderness (R), CVA tenderness (L) - Neurological Exam Neurological exam: Present: alert, oriented X3 - Psychiatric Psychiatric exam: Present: normal affect, normal mood - Skin Skin exam: Present: warm, dry, intact, normal color ED Course Vital Signs 01/09/22 01/09/22 09:43 13:49 Temperature 97.8 F 97.6 F Pulse Rate 59 L 73 Respiratory 18 20 Rate Blood Pressure 159/78 128/75 [Right] O2 Sat by Pulse 99 100 Oximetry ED Medical Decision Making - Medical Decision Making 56-year-old black female with no past medical history presents to the emergency department for evaluation of right knee pain. She states that her right knee pain started on Friday and she denies any trauma or injury. She states that several years ago she fell and hit her knee and had some pain back then but that pain had resolved. She states that her right knee pain now is rated 9 out of 10, intermittent, and worse with certain positions. She denies fever or swelling to her right knee. No gross abnormalities noted on exam. Patient treated with steroids, anti- inflammatories, and muscle relaxants in the emergency department. She will be discharged home with naproxen and Flexeril to use as needed for pain and advised to follow-up with her primary care provider or orthopedics as needed. She is advised to return to the emergency department for any concerning symptoms. She verbalizes understanding of and agreement with plan of care. Critical care attestation.: If time is entered above; I have spent that time in minutes in the direct care of this critically ill patient, excluding procedure time. ED Disposition Clinical Impression: Right knee pain Qualifiers: Chronicity: acute Qualified Code(s): M25.561 - Pain in right knee Disposition: 01 HOME / SELF CARE / HOMELESS Is pt being admited?: No Does the pt Need Aspirin: No Condition: Stable Instructions: Chronic Knee Pain, Adult, [id number], How to Use Cold Therapy, [id number]-[id number], Musculoskeletal Pain, Acute Knee Pain, Adult, [id number] Additional Instructions: Take medications as prescribed. Follow-up with primary care provider if no improvement or worsening symptoms. Return to the emergency department as needed. Prescriptions: Cyclobenzaprine [Flexeril] 10 mg PO TID PRN #30 tab PRN Reason: Muscle Spasm Naproxen [Naprosyn] 500 mg PO BID #14 tab Referrals: OWEN STRICKLAND MD [Primary Care Provider] - 3-5 Days YANG MAGANA MD [Staff Physician] - 3-5 Days Forms: Work/School Release Form(ED) Time of Disposition: 13:06
[2022-01-09 13:50] VITALS: BP 128/75
== END 2022-01-09 13:49 | disposition home or self-care (01) ==
LOC: ED 09:31
DX: M25.561 Pain in right knee (principal); F17.200 Nicotine dependence, unspecified, uncomplicated
CPT/HCPCS: 99282

== ENCOUNTER 2022-01-20 15:44 | Emergency (ER) | payer BC ==
[2022-01-20 16:16] VITALS: BP 149/85
[2022-01-20] MEDS ORDERED: IBUPROFEN 600 MG TAB PO ONE (23:03)
[2022-01-20] MEDS ORDERED: ACETAMINOPHEN 500 MG TAB PO ONE (23:03)
[2022-01-20] MEDS ORDERED: predniSONE 20 MG TAB PO ONE (23:03)
--- NOTE | 2022-01-20 23:12 | Emergency Department Report ---
ED Extremity Problem HPI - General Chief complaint: Pain General Stated complaint: RT KNEE PAIN Source: patient Mode of arrival: Ambulatory Limitations: No Limitations - History of Present Illness Initial comments: Patient is a 56-year-old -Polish female with a history of chronic osteoarthritis of the right knee who presents to the ED with complaint of acute exacerbation of her chronic right knee pain for the last 2 weeks, worse in the last 2 days. Patient states that any ambulation makes the pain worse and that she has previously taken [id number] pain medications with no relief. Patient denies headache, dizziness, fall, chest pain or shortness of breath, fever, chills, nausea and vomiting, numbness and tingling or weakness of lower extremities bilaterally or hip pain and change in vision. MD Complaint: extremity pain (Chronic right knee), extremity swelling (Right knee), joint swelling (Right knee), joint paint (Right knee) -: Gradual, year(s) (5) Location: right (knee), lower extremity (right knee) History of Same: Yes (Chronic osteoarthritis of the right knee) -: Yes arthralgia (Right knee), No fever, No associated dyspnea, No associated chest pain Radiation: none Severity scale (0 -10): 8 Quality: aching, sharp Consistency: constant Improves with: nothing Worsens with: weight bearing, walking, exertion, palpation Associated Symptoms: denies other symptoms, arthralgias (Right knee pain). denies: chest pain, shortness of breath, myalgias, rash - Related Data Previous Rx's Medication Instructions Recorded Last Taken Type Azithromycin [Zithromax Z-ANJELICA] 250 mg PO DAILY #6 tablet 07/25/14 Unknown Rx Promethazine /Codeine 5 ml PO Q6H PRN #120 udc 07/25/14 Unknown Rx [Phenergan/Codeine 6.25-10 mg/5 ml] predniSONE 10 mg PO TID #15 tab 07/25/14 Unknown Rx Ibuprofen [Motrin] 600 mg PO Q8H PRN #20 tablet 01/13/18 Unknown Rx Acetaminophen/Codeine [Tylenol 1 tab PO Q6H PRN #12 tab 04/26/19 Unknown Rx /Codeine # 3 tab] Amoxicillin [Amoxicillin TAB] 875 mg PO BID #20 tablet 04/26/19 Unknown Rx Nystas/Diphen/Xyl Visc/Mylanta 30 ml MM Q6H PRN 5 Days ml 04/26/19 Unknown Rx [Magic Mouthwash] Famotidine [Pepcid] 20 mg PO BID #60 tablet 12/13/20 Unknown Rx Ondansetron [Zofran Odt] 4 mg PO Q6HR PRN #15 tab.rapdis 12/13/20 Unknown Rx Cyclobenzaprine [Flexeril] 10 mg PO TID PRN #30 tab 01/09/22 Unknown Rx Naproxen [Naprosyn] 500 mg PO BID #14 tab 01/09/22 Unknown Rx Ibuprofen [Motrin 800 MG tab] 800 mg PO Q8HR PRN #30 tablet 01/20/22 Unknown Rx methOCARBAMOL [Robaxin TAB] 500 mg PO Q6H PRN #30 tablet 01/20/22 Unknown Rx predniSONE [Deltasone] 60 mg PO QDAY #15 tab 01/20/22 Unknown Rx traMADoL [Ultram 50 MG tab] 50 mg PO Q6HR PRN #12 tablet 01/20/22 Unknown Rx Allergies Allergy/AdvReac Type Severity Reaction Status Date / Time No Known Allergies Allergy Verified 01/13/18 06:20 ED Review of Systems ROS: Stated complaint: RT KNEE PAIN Other details as noted in HPI Constitutional: denies: chills, fever Eyes: denies: eye pain, eye discharge, vision change ENT: denies: ear pain, throat pain Respiratory: denies: cough, shortness of breath, wheezing Cardiovascular: denies: chest pain, palpitations Endocrine: no symptoms reported Gastrointestinal: denies: abdominal pain, nausea, diarrhea Genitourinary: denies: urgency, dysuria, discharge Musculoskeletal: joint swelling (Right knee), arthralgia (Right knee pain and swelling). denies: back pain Skin: denies: rash, lesions Neurological: denies: headache, weakness, paresthesias Psychiatric: denies: anxiety, depression Hematological/Lymphatic: denies: easy bleeding, easy bruising ED Past Medical Hx - Past Medical History Hx Hypertension: No Hx CVA: No Hx Arthritis: Yes (Right knee chronic) Additional medical history: right knee pain - Surgical History Additional Surgical History: tubiligation - Social History Smoking Status: Light Tobacco Smoker Substance Use Type: None - Medications Home Medications: Home Medications Medication Instructions Recorded Confirmed Last Taken Type Azithromycin [Zithromax Z-ANJELICA] 250 mg PO DAILY #6 tablet 07/25/14 Unknown Rx Promethazine /Codeine 5 ml PO Q6H PRN #120 udc 07/25/14 Unknown Rx [Phenergan/Codeine 6.25-10 mg/5 ml] predniSONE 10 mg PO TID #15 tab 07/25/14 Unknown Rx Ibuprofen [Motrin] 600 mg PO Q8H PRN #20 tablet 01/13/18 Unknown Rx Acetaminophen/Codeine [Tylenol 1 tab PO Q6H PRN #12 tab 04/26/19 Unknown Rx /Codeine # 3 tab] Amoxicillin [Amoxicillin TAB] 875 mg PO BID #20 tablet 04/26/19 Unknown Rx Nystas/Diphen/Xyl Visc/Mylanta 30 ml MM Q6H PRN 5 Days ml 04/26/19 Unknown Rx [Magic Mouthwash] Famotidine [Pepcid] 20 mg PO BID #60 tablet 12/13/20 Unknown Rx Ondansetron [Zofran Odt] 4 mg PO Q6HR PRN #15 tab.rapdis 12/13/20 Unknown Rx Cyclobenzaprine [Flexeril] 10 mg PO TID PRN #30 tab 01/09/22 Unknown Rx Naproxen [Naprosyn] 500 mg PO BID #14 tab 01/09/22 Unknown Rx Ibuprofen [Motrin 800 MG tab] 800 mg PO Q8HR PRN #30 tablet 01/20/22 Unknown Rx methOCARBAMOL [Robaxin TAB] 500 mg PO Q6H PRN #30 tablet 01/20/22 Unknown Rx predniSONE [Deltasone] 60 mg PO QDAY #15 tab 01/20/22 Unknown Rx traMADoL [Ultram 50 MG tab] 50 mg PO Q6HR PRN #12 tablet 01/20/22 Unknown Rx ED Physical Exam - General Limitations: No Limitations General appearance: alert, in no apparent distress - Head Head exam: Present: atraumatic, normocephalic, normal inspection - Eye Eye exam: Present: normal appearance, PERRL, EOMI Pupils: Present: normal accommodation - ENT ENT exam: Present: normal exam, normal orophraynx, mucous membranes moist, TM's normal bilaterally, normal external ear exam - Neck Neck exam: Present: normal inspection, full ROM. Absent: tenderness, meningismus - Respiratory Respiratory exam: Present: normal lung sounds bilaterally. Absent: respiratory distress, wheezes, rales, rhonchi, chest wall tenderness, accessory muscle use, decreased breath sounds - Cardiovascular Cardiovascular Exam: Present: regular rate, normal rhythm, normal heart sounds. Absent: systolic murmur, diastolic murmur, rubs, gallop - GI/Abdominal GI/Abdominal exam: Present: soft, normal bowel sounds. Absent: tenderness, guarding, rebound, hyperactive bowel sounds, hypoactive bowel sounds, organomegaly - Extremities Exam Extremities exam: Present: normal inspection, tenderness (Palpable right knee tenderness with mild swelling and limited range of motion due to pain), normal capillary refill, joint swelling (Right knee). Absent: full ROM (Limited range of motion of right knee due to pain), pedal edema ( swelling), calf tenderness - Back Exam Back exam: Present: normal inspection, full ROM. Absent: tenderness, CVA tenderness (R), CVA tenderness (L), muscle spasm, paraspinal tenderness, vertebral tenderness - Neurological Exam Neurological exam: Present: alert, oriented X3, CN II-XII intact, normal gait. Absent: reflexes normal - Psychiatric Psychiatric exam: Present: normal affect, normal mood. Absent: anxious - Skin Skin exam: Present: warm, dry, intact, normal color. Absent: rash ED Course Vital Signs 01/20/22 16:12 Temperature 98.7 F Pulse Rate 65 Respiratory 14 Rate Blood Pressure 149/85 O2 Sat by Pulse 98 Oximetry ED Medical Decision Making - Medical Decision Making This is a 56-year-old -Polish female with a history of chronic osteoarthritis of the right knee who presents to the ED with complaint of acute exacerbation of her chronic right knee pain for the last 2 weeks, worse in the last 2 days. Patient states that any ambulation makes the pain worse and that she has previously taken [id number] pain medications with no relief. In the ED, patient is alert and oriented x3 and is not in any distress. Patient was treated in the ED for pain and given the fact the patient's condition is chronic, patient was discharged home on pain medications and advised to follow- up with her primary care physician in 7 to 10 days for reevaluation. Patient was advised to return to the ED immediately if symptoms get worse. - Differential Diagnosis Chronic osteoarthritis; chronic pain syndrome; muscle strain; Critical care attestation.: If time is entered above; I have spent that time in minutes in the direct care of this critically ill patient, excluding procedure time. ED Disposition Clinical Impression: Chronic pain of right knee, Chronic osteoarthritis Disposition: HOME / SELF CARE / HOMELESS Is pt being admited?: No Does the pt Need Aspirin: No Condition: Stable Instructions: Chronic Knee Pain, Adult, [id number], Chronic Pain, Adult, Arthritis, [id number], Joint Pain, [id number], Osteoarthritis Additional Instructions: Your pain is due to chronic osteoarthritis. Therefore take medications with food, drink plenty of fluids, and follow-up with your primary care physician in 7 to 10 days for reevaluation. Return to the ED immediately if symptoms get worse. Prescriptions: predniSONE [Deltasone] 60 mg PO QDAY #15 tab Ibuprofen [Motrin 800 MG tab] 800 mg PO Q8HR PRN #30 tablet PRN Reason: Pain , Severe (7-10) methOCARBAMOL [Robaxin TAB] 500 mg PO Q6H PRN #30 tablet PRN Reason: Pain traMADoL [Ultram 50 MG tab] 50 mg PO Q6HR PRN #12 tablet PRN Reason: Pain Referrals: [facility] [Provider Group] - 3-5 Days Time of Disposition: 23:24 Print Language: IRISH
== END 2022-01-20 23:51 | disposition home or self-care (01) ==
LOC: ED 15:44
DX: G89.29 Other chronic pain (principal); M25.561 Pain in right knee; M17.11 Unilateral primary osteoarthritis, right knee; F17.290 Nicotine dependence, other tobacco product, uncomplicated
CPT/HCPCS: 99282